=== PATIENT | male | born 1950 | race Caucasian/White ===

== ENCOUNTER 2018-05-08 14:40 | Emergency (ER) | payer MEDICARE | END 2018-05-08 15:22 | disposition home or self-care (01) | LOC: NAV ERS 14:40 | DX: L98.9 Disorder of the skin and subcutaneous tissue, unspecified (principal); F17.210 Nicotine dependence, cigarettes, uncomplicated | CPT/HCPCS: 99282 ==

== ENCOUNTER 2018-10-24 11:04 | Outpatient (CLI) | payer MEDICARE, MEDICAID ==
--- NOTE | 2018-10-24 12:11 | RAD ---
RIGHT SHOULDER THREE VIEWS: HISTORY: Right shoulder pain. COMPARISON: None. FINDINGS: Acromioclavicular and glenohumeral alignment are maintained. Osseous excrescence at the greater tube rosity may represent an enthesophyte or osteophyte. No acute fracture, dislocation, or aggressive os seous erosions. IMPRESSION: Degenerative changes, right shoulder. No acute osseous abnormalities are demonstrated. POS: JUICE
== END 2018-10-24 11:05 | disposition home or self-care (01) ==
LOC: NAV RAD 11:04
PROVIDERS: ATTEND Nurse Practitioner Adult Health
DX: M25.511 Pain in right shoulder (principal); M19.011 Primary osteoarthritis, right shoulder

== ENCOUNTER 2019-01-23 11:51 | Outpatient (CLI) | payer MEDICARE, MEDICAID ==
--- NOTE | 2019-01-23 12:24 | CT ---
Noncontrast enhanced images brain history: Weakness. Noncontrast enhanced images of the brain obtained. There is diffuse cortical atrophy and deep white matter ischemic changes. Areas of lacunar infarction seen in the left basal ganglion. IMPRESSION: cortical atrophy. No evidence of acute intracranial abnormality seen.
--- NOTE | 2019-01-23 12:26 | CT ---
NONCONTRAST ENHANCED CT IMAGES LUMBAR SPINE: HISTORY: Low back pain. FINDINGS: Axial images are obtained with coronal and sagittal reconstructions. Atherosclerotic calcification seen in the abdominal aorta. T11-12, T12-L1: Unremarkable. L1-2: There is mild facet hypertrophy. The central canal and neural foramen are patent. L2-3: There is some mild disc desiccation. There is a mild broad-based disc bulge and mild facet hype rtrophy. The central canal neural foramen are patent. L3-4: Some disc desiccation and disc space height loss seen. There is a broad-based disc bulge with b ilateral facet hypertrophy and ligamentum flavum hypertrophy. This results in moderate central and lateral recess stenosis. Mild neural foraminal narrowing is seen. L4-5: Disc space height loss seen. Bilateral facet and ligamentum flavum hypertrophy is seen resultin g in moderate degree of central and lateral recess stenosis. The neural foramen are patent. L5-S1: Unremarkable. IMPRESSION: Minimal multilevel lumbar disc degenerative changes. No significant evidence of herniations or spinal stenosis seen. Transcribed Date/Time: 01/23/2019 12:35 PM
== END 2019-01-23 11:52 | disposition home or self-care (01) ==
LOC: NAV CT 11:51
PROVIDERS: ATTEND Internal Medicine
DX: R29.898 Other symptoms and signs involving the musculoskeletal system (principal); M51.36 Other intervertebral disc degeneration, lumbar region; G31.9 Degenerative disease of nervous system, unspecified
CPT/HCPCS: 70450; 72131

== ENCOUNTER 2024-05-21 13:24 | Outpatient (CLI) | payer MEDICARE, MEDICAID | END 2024-05-21 13:25 | disposition home or self-care (01) | LOC: NAV RAD 13:24 | PROVIDERS: ATTEND Family Medicine | DX: M25.552 Pain in left hip (principal); M16.12 Unilateral primary osteoarthritis, left hip ==